=== PATIENT | female | born 1950 | race Caucasian/White ===

== ENCOUNTER → 2017-10-22 | Outpatient (CLI) | payer MEDICARE, OTHER ==
--- NOTE | 2017-10-22 13:18 | RAD ---
Pelvic ultrasound, 10/22/2017: History: Uterine leiomyoma Transabdominal and transvaginal scans were obtained. The uterus measures 4.9 x 3.7 x 2.9 cm. The uterine echo pattern is heterogeneous. The central uterine echo complex is not clearly defined but its visualized portion measures 3-4 mm in AP dimension. A small 1 cm bulge in the posterior uterine contour suggests a small fibroid. A structure which may be the left ovary is visualized and it is of normal size. The right ovary was not visualized. No free fluid is evident in the pelvis. IMPRESSION: Small, poorly defined uterus demonstrating a heterogeneous echo pattern with a probable small posterior uterine fibroid.
== END | disposition home or self-care (01) ==
LOC: US 07:50
PROVIDERS: ATTEND Family Medicine
DX: D25.9 Leiomyoma of uterus, unspecified (principal)
CPT/HCPCS: 76830; 76856